=== PATIENT | female | born 2005 | race Two or more races ===

== ENCOUNTER 2025-01-16 02:22 | Inpatient (IN) | payer MEDICAID, OTHER ==
[~2025-01-16] VITALS: Ht 165.1 cm; Wt 50.2 kg
[2025-01-16] MEDS: fentaNYL CITRATE 100 MCG/2 ML VL IM ONE (02:52)
[2025-01-16] MEDS: SODIUM CHLORIDE 0.9% 1,000 ML IV ONE (04:00)
[2025-01-16] MEDS ORDERED: MORPHINE SULFATE 4 MG/ML SYR/VIAL IV ONE (04:00)
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
[2025-01-16] MEDS: fentaNYL CITRATE 100 MCG/2 ML VL IV ONE ×2 (04:35→11:44)
[2025-01-16] MEDS: HYDROcodone-ACET 5/325MG TAB PO ONE (05:46)
--- NOTE | 2025-01-16 07:51 | DVH ---
CLINICAL INFORMATION: 19 years old, Female; pre surgery. Right ankle fracture. TECHNIQUE: Single AP portable chest radiograph was obtained. COMPARISON: None FINDINGS: Lungs: Clear. Cardiac: Heart size is within normal limits. Pulmonary vasculature: Unremarkable. Mediastinum/aniya: Unremarkable. Bones: No acute osseous abnormality identified. Other: No other significant findings. IMPRESSION: No evidence of acute disease in the chest.
[2025-01-16 07:55] LABS: Hematocrit 33.5 % (36.0-46.0); Hemoglobin 11.1 g/dL (12.2-16.2); Mean Corpuscular Hemoglobin 30.7 pg (28.0-32.0); Mean Corpuscular Volume 92.5 fL (80.0-100.0); Nucleated Red Blood Cells % 0.1 %
[2025-01-16 08:06] LABS: Alanine Aminotransferase 22 U/L (7-40); Albumin 4.2 g/dL (3.2-4.8); Alkaline Phosphatase 59 U/L (46-116); Anion Gap 14 (5-15); BUN/Creatinine Ratio 11.3 (10.0-20.0); Calcium 8.9 mg/dL (8.7-10.4); Carbon Dioxide 21 mmol/L (20-31); Glucose 98 mg/dL (74-106); Potassium 3.7 mmol/L (3.5-5.1); Sodium 143 mmol/L (136-145); Total Protein 6.7 g/dL (5.7-8.2)
[2025-01-16 08:07] LABS: INR 1.08 (0.9-1.15); Partial Thromboplastin Time 25.9 SEC (24.5-34.5); Prothrombin Time 11.4 sec (9.3-11.8)
[2025-01-16 08:08] LABS: Bilirubin, Total 1.6 mg/dL (0.2-1.0); Blood Urea Nitrogen 6 mg/dL (9-23); Chloride 108 mmol/L (98-107)
[2025-01-16] MEDS ORDERED: ACETAMINOPHEN 325 MG TAB PO PRN (08:45)
[2025-01-16] MEDS ORDERED: MORPHINE SULFATE INJ 2 MG/ml SYRG IV PRN (08:45)
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
[2025-01-16 10:49] LABS: Lactic Acid w/Reflex 3.2 mmol/L (0.4-2.0)
[2025-01-16 10:54] LABS: INR 1.12 (0.9-1.15); Prothrombin Time 11.7 sec (9.3-11.8)
[2025-01-16] MEDS: SODIUM CHLORIDE 0.9% 1,000 ML IV SCH (11:30)
[2025-01-16] MEDS: ONDANSETRON HCL 4 MG/2 ML VIAL IV ONE (11:43)
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
[2025-01-16] MEDS: HYDROcodone-ACET 5/325MG TAB PO PRN (13:16)
[2025-01-16] MEDS: ONDANSETRON HCL 4 MG/2 ML VIAL IV PRN (16:31)
[2025-01-16] MEDS: HYDROmorphone HCL 2 MG/ML VL/or syr IV PRN (16:32)
[2025-01-16 21:00] VITALS: BP 132/89; PULSE 62; RESP 17; TEMP 98; O2SAT 100
[2025-01-17] VITALS (9 sets, daily range): BP systolic 100–124; BP diastolic 62–87; PULSE 63–96; RESP 12–19; TEMP 97–98.8; O2SAT 94–100
[2025-01-17 02:35] LABS: Urine Protein, UAD TRACE (Negative)
[2025-01-17 07:50] LABS: Hematocrit 30.4 % (36.0-46.0); Hemoglobin 10.5 g/dL (12.2-16.2); Mean Corpuscular Hemoglobin 31.7 pg (28.0-32.0); Mean Corpuscular Volume 92.0 fL (80.0-100.0); Nucleated Red Blood Cells % 0.0 %
[2025-01-17] MEDS: ceFAZolin 1GM/50ML 50 ML IV ONE ×2 (07:54→08:27)
[2025-01-17 08:14] LABS: Alanine Aminotransferase 20 U/L (7-40); Albumin 4.0 g/dL (3.2-4.8); Alkaline Phosphatase 61 U/L (46-116); Anion Gap 16 (5-15); BUN/Creatinine Ratio 24.1 (10.0-20.0); Blood Urea Nitrogen 14 mg/dL (9-23); Carbon Dioxide 24 mmol/L (20-31); Chloride 104 mmol/L (98-107); Glucose 82 mg/dL (74-106); Sodium 144 mmol/L (136-145); Total Protein 6.2 g/dL (5.7-8.2)
[2025-01-17] MEDS ORDERED: fentaNYL CITRATE 100 MCG/2 ML VL ONE (08:19)
[2025-01-17] MEDS ORDERED: MIDAZOLAM HCL 2MG/2ML 2ml VIAL (1mg/ml) ONE (08:19)
[2025-01-17 08:20] LABS: Bilirubin, Total 2.3 mg/dL (0.2-1.0); Calcium 8.2 mg/dL (8.7-10.4); Potassium 3.3 mmol/L (3.5-5.1)
[2025-01-17] MEDS ORDERED: ONDANSETRON HCL 4 MG/2 ML VIAL ONE (08:21)
[2025-01-17] MEDS ORDERED: LIDOCAINE 2% (LOCAL ANESTH.) PF 5ml SDV ONE (08:21)
[2025-01-17] MEDS ORDERED: ONDANSETRON HCL 4 MG/2 ML VIAL IV PRN (09:15)
--- NOTE | 2025-01-17 10:11 | DVHOP2 ---
Operative Report - 2 Report Details Date: 01/17/25 Preop Diagnosis: Right ankle bimalleolar fracture with possible syndesmosis tear Postop Diagnosis: Right ankle bimalleolar fracture with syndesmosis rupture Surgeon: Marimar Alas MD Anesthesiologist: Sandra Anesthesia: General, Local Implant: Ama 3rd tubular plate with six screws and two Ama cannulated screws, syndesmosis stabilization tight rope Consent: The patient was informed of the risks and benefits of the procedure. These include but are not limited to complications of anesthesia, postoperative infection, incomplete relief of symptoms, recurrence of symptoms, damage to blood vessels, nerves and tendons, deep venous thrombosis, pulmonary embolism and possible need for repeat surgery in the future. Complications: None Estimated Blood Loss: 10 cc Fluids: See Findings: Displaced trimalleolar fracture with syndesmosis instability Indications for Surgery: Unstable ankle fracture Name of Procedure Performed Open reduction internal fixation right ankle bimalleolar fracture with synde smosis reduction and stabilization C-arm fluoroscopy Procedure Details Procedure Details: Patient was brought to the operating room and placed on the table in supine position. Patient was given general anesthetic and 2 g IV Ancef. Tourniquet was applied to the right thigh. Right lower extremity was prepped and draped in sterile fashion. Surgical time-out was performed verifying patient, laterality, and procedure. Extremity was elevated, exsanguinated with Esmarch and tourniquet inflated to 250 mm Hg. Longitudinal incision was made over the distal fibular diaphysis. I incised the muscle fascia and carefully bluntly dissected the muscle off of the fibula. The fracture was reduced with tenaculum. I then applied a 1/3 tubular placed and held it in place with the forceps. I placed a screw distally and one proximally. Screw technique involved drilling, measuring with depth gauge and application of screw. C-arm was brought in to verify reduction and positioning of hardware. Two additional screws were placed distally and two additional screws placed proximally. Again C-arm used to verify hardware placement and fracture reduction. I then brought my attention to the medial side where I made an incision over the medial ma lleolus. I used Bovie to carefully dissect down to the fracture site. I used the Bovie to debride periosteum at the edges of the fracture. I irrigated the fracture with normal saline bulb syringe. I then reduced the fracture with tenaculum and passed to guidewires. Guidewire position was verified with C-arm. I then drilled and applied 50 mm partially threaded cannulated screws x2. Again x-rays were used to verify hardware placement and fracture reduction. Guidewires were removed. I then did a push-pull test on the syndesmosis and decided that there was in fact instability. I drilled across the fibula and tibia then passed the tight rope and cinched it down and cut the sutures. I tested syndesmosis stability which was good. Multiple views with C-arm were obtained to confirm fracture reduction and hardware placement. I then irrigated the wounds with normal saline bulb syringe. I closed the subQ with 2-0 Vicryl in the skin with suman. I injected 20 cc of 0.5% ropivacaine for perioperative analgesia. I dressed the wound sterilely. I applied a bulky cotton dressing with a stirrup type splint. Tourniquet was released at time of closure. Patient tolerated the procedure well was brought to recovery room in stable condition. Condition Stable Disposition Still a Patient MARIMAR ALAS MD Jan 17, 2025 10:11
[2025-01-17] MEDS: ACETAMINOPHEN IV 1000 MG/100ML (10MG/ML) IV ONE (10:15)
[2025-01-17] MEDS: KETOROLAC TROMETH 30 MG/ML 1ML VIAL IV ONE (10:15)
[2025-01-17] MEDS: HYDROmorphone HCL 2 MG/ML VL/or syr IV PRN ×2 (10:35→10:46)
[2025-01-17] MEDS ORDERED: KETAMINE 50mg/ML 10ml Vial 0 ML ONE (10:58)
[2025-01-17] MEDS: ROPIVACAINE 0.5% (5MG/ML) 20ML AMPULE IJ ONE (11:11)
[2025-01-17] MEDS: LACTATED RINGER'S 1,000 ML IV SCH (11:57)
[2025-01-17] MEDS ORDERED: ceFAZolin 2 GM/D5W50ml 50 ML IV SCH (14:00)
[2025-01-17] MEDS: SODIUM CHLOR 0.9% PF (SALINE LOCK) 10ML VIAL/SYR IV SCH (14:30)
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
[2025-01-17] MEDS: ENOXAPARIN SOD 40 MG/0.4 ML SYRINGE SC ONE (17:30)
--- NOTE | 2025-01-17 18:08 | DVH ---
C-ARM FLUOROSCOPY: PROCEDURE: Open reduction internal fixation of the fracture FLUOROSCOPY TIME: 29.2 seconds Air Kerma: 0.45 mgy FINDINGS: Spot intraoperative C arm radiographs demonstrating open reduction internal fixation. IMPRESSION: 1. Please refer to surgical report for detailed findings.
--- NOTE | 2025-01-17 18:11 | DVH ---
CLINICAL INDICATION: ORIF TECHNIQUE: 7 radiographic views of the open reduction internal fixation of a right ankle fracture susan wheeler obtained. 7 images received. Comparison: None FINDINGS/IMPRESSION: Total fluoro time 29.2 seconds Cumulative dose: 0.45mGy
[2025-01-18 01:00] VITALS: BP 108/66; PULSE 82; RESP 17; TEMP 98.8; O2SAT 97
[2025-01-18] MEDS: HYDROcodone-ACET 10/325MG TAB PO PRN (02:49)
[2025-01-18 05:00] VITALS: BP 109/59; PULSE 77; RESP 18; TEMP 98.4; O2SAT 97
[2025-01-18] MEDS: ENOXAPARIN SOD 40 MG/0.4 ML SYRINGE SC SCH (10:15)
[2025-01-18 11:30] LABS: Anion Gap 10 (5-15); Carbon Dioxide 26 mmol/L (20-31); Chloride 105 mmol/L (98-107); Sodium 141 mmol/L (136-145)
[2025-01-18 11:35] LABS: Calcium 7.4 mg/dL (8.7-10.4); Potassium 3.2 mmol/L (3.5-5.1)
[2025-01-18 11:36] LABS: BUN/Creatinine Ratio 20.0 (10.0-20.0); Blood Urea Nitrogen 8 mg/dL (9-23); Glucose 92 mg/dL (74-106)
[2025-01-18 11:37] LABS: Magnesium 1.5 mg/dL (1.6-2.6)
[2025-01-18 13:00] VITALS: BP 109/67; PULSE 72; RESP 17; TEMP 97.6; O2SAT 100
[2025-01-18] MEDS ORDERED: PROPOFOL 10 MG/ML 100ML BOTTLE IV ONE (13:50)
--- NOTE | 2025-01-18 15:47 | MEDREC ---
[facility] Intervention Section I [facility] Intervention: Review betsey of ABX 48h AIO (PLEASE CONSIDER D/C ANTIBIOTIC IN ABSENCE OF BACTERIAL INFECTION) RADHA CALDWELL PHARMACIST Jan 18, 2025 15:47
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
[2025-01-18 17:00] VITALS: BP 98/57; PULSE 66; RESP 17; TEMP 97.9; O2SAT 99
[2025-01-18 20:00] VITALS: RESP 16
[2025-01-18 21:00] VITALS: BP 103/61; PULSE 79; RESP 17; TEMP 98.9; O2SAT 99
[2025-01-19 01:00] VITALS: BP 111/69; PULSE 75; RESP 17; TEMP 98.6; O2SAT 100
[2025-01-19 05:00] VITALS: BP 108/72; PULSE 63; RESP 17; TEMP 98.5; O2SAT 98
[2025-01-19 08:00] VITALS: PULSE 66; RESP 18
[2025-01-19 09:00] VITALS: BP 110/70; PULSE 65; RESP 20; TEMP 98.6; O2SAT 100
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
[2025-01-19 20:00] VITALS: PULSE 83; RESP 16
[2025-01-19 21:00] VITALS: BP 132/96; PULSE 83; RESP 16; TEMP 98.2; O2SAT 100
[2025-01-20] VITALS (8 sets, daily range): BP systolic 100–127; BP diastolic 53–79; PULSE 61–79; RESP 16–73; TEMP 97.9–98.6; O2SAT 98–100
[2025-01-20] MEDS ORDERED: ZOFR4T PO (15:59)
[2025-01-20] MEDS ORDERED: NALO4SPR2 (15:59)
[2025-01-20] MEDS ORDERED: ASPI-543 PO (15:59)
[2025-01-20] MEDS ORDERED: AUG875T PO (15:59)
[2025-01-20] MEDS ORDERED: HYDR-4798 PO (15:59)
--- NOTE | 2025-01-20 16:00 | DVHDS2 ---
Discharge Summary Date of Admission Jan 16, 2025 at 08:39 Labs/Diagnostic Data: Laboratory Results Test 01/18/25 10:42 01/17/25 06:10 01/17/25 02:21 01/16/25 11:58 Sodium Level 141 mmol/L (136-145) Potassium Level 3.2 mmol/L (3.5-5.1) Chloride Level 105 mmol/L (98-107) Carbon Dioxide Level 26 mmol/L (20-31) Anion Gap 10 (5-15) Blood Urea Nitrogen 8 mg/dL (9-23) Creatinine 0.40 mg/dL (0.550-1.02) Glomerular Filtration Rate Calc 146 mL/min (>90) BUN/Creatinine Ratio 20.0 (10.0-20.0) Serum Glucose 92 mg/dL (74-106) Calcium Level 7.4 mg/dL (8.7-10.4) Magnesium Level 1.5 mg/dL (1.6-2.6) White Blood Count 10.2 10^3/uL (4.4-10.8) Red Blood Count 3.30 10^6/uL (4.0-5.20) Hemoglobin 10.5 g/dL (12.2-16.2) Hematocrit 30.4 % (36.0-46.0) Mean Corpuscular Volume 92.0 fL (80.0-100.0) Mean Corpuscular Hemoglobin 31.7 pg (28.0-32.0) Mean Corpuscular Hemoglobin Concent 34.5 g/dL (32.0-36.0) Red Cell Distribution Width 13.8 % (11.8-14.3) Platelet Count 238 10^3/uL (140-450) Mean Platelet Volume 9.5 fL (6.9-10.8) Neutrophils (%) (Auto) 76.4 % (37.0-80.0) Lymphocytes (%) (Auto) 14.5 % (10.0-50.0) Monocytes (%) (Auto) 8.6 % (0.0-12.0) Eosinophils (%) (Auto) 0.2 % (0.0-7.0) Basophils (%) (Auto) 0.3 % (0.0-2.0) Neutrophils # (Auto) 7.8 10 ^3/uL (1.6-8.6) Lymphocytes # (Auto) 1.5 10 ^3/uL (0.4-5.4) Monocytes # (Auto) 0.9 10 ^3/uL (0-1.3) Eosinophils # (Auto) 0 10 ^3/uL (0-0.8) Basophils # (Auto) 0 10 ^3/uL (0-0.2) Nucleated Red Blood Cells 0.0 % Total Bilirubin 2.3 mg/dL (0.2-1.0) Aspartate Amino Transferase (AST) 26 U/L (13-40) Alanine Aminotransferase (ALT) 20 U/L (7-40) Alkaline Phosphatase 61 U/L (46-116) Total Protein 6.2 g/dL (5.7-8.2) Albumin 4.0 g/dL (3.2-4.8) Urine Color Yellow (Yellow) Urine Clarity Clear (Clear) Urine pH 6.0 (5.0-9.0) Urine Specific [place] 1.028 (1.001-1.035) Urine Protein Trace (Negative) Urine Ketones 4+ (Negative) Urine Blood 3+ /uL (Negative) Urine Nitrite Negative (Negative) Urine Bilirubin Negative (Negative) Urine Urobilinogen Normal mg/dL (Negative) Urine Leukocyte Esterase Negative /uL (Negative) Urine RBC 34 /hpf (0 - 4) Urine Microscopic WBC 3 /HPF (0-5) Urine Squamous Epithelial Cells Few /hpf (<5) Urine Bacteria None seen /hpf (None Seen) Urine Mucus Few (None Seen) Urine Glucose Normal mg/dL (Normal) Urine Test Negative (Negative) Lactic Acid Level 1.4 mmol/L (0.4-2.0) Test 01/16/25 09:43 01/16/25 07:30 Prothrombin Time 11.7 sec (9.3-11.8) Prothrombin Time INR 1.12 (0.9-1.15) Erythrocyte Sedimentation Rate 2 mm/hr (0-20) Activated Partial Thromboplast Time 25.9 SEC (24.5-34.5) C-Reactive Protein High Sensitivity < 0.02 mg/dL (<1.0) Beta HCG, Quantitative 0.1 mIU/mL (1.5-4.2) Plasma/Serum Blood Alcohol 85.8 mg/dL (<10) Other Laboratory Tests 01/18/25:42 01/17/25 06:10 Condition at Discharge: Stable Final Diagnosis/Problems List Right ankle bimalleolar fracture with syndesmosis rupture Discharge Disposition: Still a Patient Discharge Instruct/Medications Scheduled Amoxicillin & Pot Clavulanate (Augmentin Tablet), 875 MG PO BID Aspirin (Aspir-Low), 81 MG PO BIDPC Naloxone HCl (Narcan), 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 Patient was counseled about treatment plan, medications, possible side effects, patientverbalized understanding. All questions were answered to the best of my ability. This discharge took greater then 30 minutes in planning, reviewing documentation, counseling the patient, and discussing with other team members." ASSESSMENT ASSESSMENT Assessment Right ankle bimalleolar fracture with syndesmosis rupture EVERETTE WALTERS MD Jan 20, 2025 16:00
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
== END 2025-01-20 18:30 | disposition home or self-care (01) | DRG 313 ==
LOC: ER 02:26 → OVERFLOW 08:39 → EAST 23:53
PROVIDERS: ADMIT Internal Medicine; ATTEND Internal Medicine
PROC: 0SSF0ZZ Reposition Right Ankle Joint, Open Approach (ICD-10-PCS; 2025-01-17)
PROC: BQ1GZZZ Fluoroscopy of Right Ankle (ICD-10-PCS; 2025-01-17)
PROC: 0QSG04Z Reposition Right Tibia with Internal Fixation Device, Open Approach (ICD-10-PCS; principal; 2025-01-17 08:18)
DX: S82.841A Displaced bimalleolar fracture of right lower leg, initial encounter for closed fracture (principal); D72.829 Elevated white blood cell count, unspecified; E80.6 Other disorders of bilirubin metabolism; K21.9 Gastro-esophageal reflux disease without esophagitis; S93.431A Sprain of tibiofibular ligament of right ankle, initial encounter; Z79.899 Other long term (current) drug therapy; S82.51XA Displaced fracture of medial malleolus of right tibia, initial encounter for closed fracture; S82.891A Other fracture of right lower leg, initial encounter for closed fracture; V03.10XA Pedestrian on foot injured in collision with car, pick-up truck or van in traffic accident, initial encounter; Y93.89 Activity, other specified; Y92.89 Other specified places as the place of occurrence of the external cause; Y99.8 Other external cause status
CPT/HCPCS: 36415; 71045; 73562; 73590; 73600; 73610; 73630; 76000; 80048; 80053; 80320; 81001; 81025; 83605; 83735; 84702; 85025; 85610; 85652; 85730; 86141; 86850; 86900; 86901; 96372; 96374; 96375; 97110; 97116; 97163; G0378; J0131; J1885; J2003; J2250; J2405; J2704